=== PATIENT | male | born 1995 | race Caucasian/White ===

== ENCOUNTER 2018-04-05 10:25 | Emergency (ER) | payer SELFPAY ==
[~2018-04-05] VITALS: Ht 177.8 cm; Wt 99.8 kg
[2018-04-05 10:47] VITALS: BP 128/76
--- NOTE | 2018-04-05 10:57 | PHYS DOC ---
Past Medical History Past Medical History: No Pertinent History Past Surgical History: No Surgical History Alcohol Use: None Drug Use: None Adult General Chief Complaint Chief Complaint: FLU SYMPTOM HPI HPI Patient is a 22 year old male with no significant medical history who presents today complaining of a productive cough, sore throat, body aches and chills since yesterday. Review of Systems Review of Systems Constitutional: Reports body aches and chills Eyes: Denies change in visual acuity, redness, or eye pain [] HENT: Reports sore throat. Denies nasal congestion Respiratory: Reports productive cough, denies of breath [] Cardiovascular: No additional information not addressed in HPI [] GI: Denies abdominal pain, nausea, vomiting, bloody stools or diarrhea [] : Denies dysuria or hematuria [] Musculoskeletal: Denies back pain or joint pain [] Integument: Denies rash or skin lesions [] Neurologic: Denies headache, focal weakness or sensory changes [] All other systems were reviewed and found to be within normal limits, except as documented in this note. Allergies Allergies Allergies Coded Allergies Type Severity Reaction Last Updated Verified No Known Drug Allergies 04/05/18 No Physical Exam Physical Exam Constitutional: Well developed, well nourished, no acute distress, non-toxic appearance. [] HENT: Normocephalic, atraumatic, bilateral external ears normal, oropharynx moist, no oral exudates, nose normal. [] Eyes: PERRLA, EOMI, conjunctiva normal, no discharge. [] Neck: Normal range of motion, no tenderness, supple, no stridor. [] Cardiovascular:Heart rate regular rhythm, no murmur [] Lungs & Thorax: Bilateral breath sounds clear to auscultation [] Abdomen: Bowel sounds normal, soft, no tenderness, no masses, no pulsatile masses. [] Skin: Warm, dry, no erythema, no rash. [] Back: No tenderness, no CVA tenderness. [] Extremities: No tenderness, no cyanosis, no clubbing, ROM intact, no edema. [] Neurologic: Alert and oriented X 3, normal motor function, normal sensory function, no focal deficits noted. [] Psychologic: Affect normal, judgement normal, mood normal. [] Current Patient Data Vital Signs Vital Signs Date Time Temp Pulse Resp B/P (MAP) Pulse Ox O2 Delivery O2 Flow Rate FiO2 04/05/18 10:47 97.6 96 20 128/76 (93) 96 Room Air 97.6 Lab Values Laboratory Tests Test 04/05/18 11:00 Influenza Type A Antigen Negative (NEGATIVE) Influenza Type B Antigen Negative (NEGATIVE) EKG EKG [] Radiology/Procedures Radiology/Procedures []PROCEDURE: CHEST PA & LATERAL Chest, PA and Lateral: Technique: PA and lateral views of the chest were obtained. History: Shortness of breath, dry cough. Comparison: None. Findings: The heart size grossly appears unremarkable. Mild prominent bilateral interstitial lung markings. There is no acute infiltrate or visualized pneumothorax. IMPRESSION: Minimal prominent bilateral perihilar interstitial lung markings could be mild bronchitis. Electronically signed by: Wade Santana MD (04/05/2018 11:15 AM) [id number] DICTATED and SIGNED BY: WADE SANTANA MD DATE: 04/05/18 1113 Course & Med Decision Making Course & Med Decision Making Pertinent Labs and Imaging studies reviewed. (See chart for details) This is a 22-year-old male patient presented to the ED today with sore throat, cough, nasal congestion body aches and chills for 2 days. Negative rapid strep, negative influenza A or B. Chest x-ray interpreted by radiologist was suspicious for bronchitis. Patient was discharged with albuterol inhaler, prednisone and Tessalon Perles. Follow-up with PCP in 1-2 weeks. Dragon Disclaimer Dragon Disclaimer This electronic medical record was generated, in whole or in part, using a voice recognition dictation system. Departure Departure Impression: Primary Impression: Acute bronchitis Additional Impression: Acute viral pharyngitis Disposition: HOME, SELF-CARE Condition: STABLE Patient Instructions: Acute Bronchitis, Viral Pharyngitis Additional Instructions: You were elevated in the emergency, and noted to have acute bronchitis. Consider smoking cessation. Use the medications prescribed as ordered. Follow- up with your doctor in 1-2 weeks. 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
--- NOTE | 2018-04-05 11:19 | RAD ---
Chest, PA and Lateral: Technique: PA and lateral views of the chest were obtained. History: Shortness of breath, dry cough. Comparison: None. Findings: The heart size grossly appears unremarkable. Mild prominent bilateral interstitial lung markings. There is no acute infiltrate or visualized pneumothorax. IMPRESSION: Minimal prominent bilateral perihilar interstitial lung markings could be mild bronchitis. Electronically signed by: Wade Santana MD (04/05/2018 11:15 AM) [id number]
[2018-04-05 11:40] LABS: INFLUENZA A PATIENT NEGATIVE (NEGATIVE); INFLUENZA B PATIENT NEGATIVE (NEGATIVE)
[2018-04-05] MEDS ORDERED: VENTOLIN HFA18 GM INH (12:29)
[2018-04-05] MEDS ORDERED: BENZ100C PO (12:29)
[2018-04-05] MEDS ORDERED: PRED50TA PO (12:29)
== END 2018-04-05 12:30 | disposition home or self-care (01) ==
LOC: ER 10:25
DX: J20.9 Acute bronchitis, unspecified (principal); J02.8 Acute pharyngitis due to other specified organisms; B97.89 Other viral agents as the cause of diseases classified elsewhere
CPT/HCPCS: 71046; 87070; 87804; 87880; 99284-25